=== PATIENT | male | born 1960 | race Caucasian/White ===

== ENCOUNTER 2018-03-18 11:41 | Emergency (ER) | payer BC ==
[~2018-03-18] VITALS: Ht 172.7 cm; Wt 74.8 kg
[2018-03-18 11:52] VITALS: BP_SYST 121
[2018-03-18 12:45] VITALS: BP_SYST 120
== END 2018-03-18 12:45 | disposition home or self-care (01) ==
LOC: SED 11:41
DX: S60.561A Insect bite (nonvenomous) of right hand, initial encounter (principal); L03.113 Cellulitis of right upper limb; W57.XXXA Bitten or stung by nonvenomous insect and other nonvenomous arthropods, initial encounter; Y93.89 Activity, other specified; Y92.89 Other specified places as the place of occurrence of the external cause; Y99.8 Other external cause status
CPT/HCPCS: 99283